=== PATIENT | male | born 1970 | race African-American/Black ===

== ENCOUNTER 2022-01-11 08:12 | Emergency (ER) | payer OTHER ==
[~2022-01-11] VITALS: Ht 177.8 cm; Wt 75.0 kg
[2022-01-11 08:14] VITALS: BP 146/102
[2022-01-11] MEDS ORDERED: PANTOPRAZOLE SODIUM 40 MG/VIAL IV ONE (08:30)
[2022-01-11] MEDS ORDERED: VISCOUS LIDOCAINE 2% 15 ML UDC MM ONE (08:30)
[2022-01-11] MEDS ORDERED: ONDANSETRON HCL 4MG/2ML INJ IV ONE (08:30)
[2022-01-11] MEDS ORDERED: MAGNESIUM/ALUMINUM HYDROXIDE/SIMETHICONE 30ML UDC PO ONE (08:30)
[2022-01-11 11:56] LABS: BASOPHILS % 0.6 % (0.0-2.0); EOSINOPHILS % 2.8 % (0.0-5.0); HEMOGLOBIN. 15.3 g/dL (14.0-18.0); LYMPHOCYTES % 21.9 % (20.0-50.0); MEAN CORPUSCULAR HEMOGLOBIN 25.4 pg (28.0-32.0); MEAN CORPUSCULAR VOLUME 79.6 fL (80.0-94.0); MEAN PLATELET VOLUME 8.3 fl (7.4-10.4); MONOCYTES % 11.5 % (2.0-8.0); NEUTROPHILS % 63.2 % (40.0-76.0); PLATELET 195 x1000/uL (130-400); RED BLOOD CELL COUNT 6.03 mill/uL (4.7-6.1); RED CELL DISTRIBUTION WIDTH 16.5 % (11.6-14.6)
[2022-01-11 12:00] LABS: CHLORIDE 103 mEq/L (98-107)
[2022-01-11 12:03] LABS: ETHANOL BLOOD < 10 mg/dL
[2022-01-11] MEDS ORDERED: PROT40 MT (14:30)
[2022-01-11] MEDS ORDERED: ALBU6.7H9 INH (14:30)
[2022-01-11] MEDS ORDERED: ONDA4TAB5 MT (14:30)
[2022-01-11] MEDS ORDERED: DOXY-326 MT (14:30)
[2022-01-11] MEDS ORDERED: ONDANSETRON 4MG ODT PO ONE (14:30)
[2022-01-11] MEDS ORDERED: PANTOPRAZOLE 40MG DR TABLET PO ONE (14:30)
[2022-01-11] MEDS ORDERED: MAGNESIUM/ALUMINUM HYDROXIDE/SIMETHICONE 30ML UDC PO SCH (14:45)
[2022-01-11] MEDS ORDERED: DOXYCYCLINE HYCLATE 100MG CAPSULE PO ONE (14:45)
[2022-01-11] MEDS ORDERED: VISCOUS LIDOCAINE 2% 15 ML UDC MM SCH (15:00)
== END 2022-01-11 14:56 | disposition home or self-care (01) ==
LOC: ER 08:12
DX: R10.13 Epigastric pain (principal); R07.89 Other chest pain; K29.70 Gastritis, unspecified, without bleeding; R03.0 Elevated blood-pressure reading, without diagnosis of hypertension; R91.8 Other nonspecific abnormal finding of lung field; F17.210 Nicotine dependence, cigarettes, uncomplicated
CPT/HCPCS: 36415; 71045; 76705; 80053; 80320; 83690; 83880; 84484; 85025; 93005; 99285; Q0162; G0480

== ENCOUNTER 2024-11-22 12:31 | Emergency (ER) | payer OTHER ==
[~2024-11-22] VITALS: Ht 177.8 cm; Wt 78.0 kg
[~2024-11-22 12:31] MED LIST: ALBU6.7H3 INH; DOXY100C74 MT; ONDA4TAB5 MT; PROT40 MT
[2024-11-22 12:36] VITALS: O2SAT 100
[2024-11-22 13:00] LABS: BASOPHILS % 1.2 % (0.0-2.0); DIFFERENTIAL COMMENT 0; EOSINOPHILS % 3.5 % (0.0-5.0); HEMOGLOBIN. 12.9 g/dL (14.0-18.0); LYMPHOCYTES % 23.8 % (20.0-50.0); MEAN CORPUSCULAR HEMOGLOBIN 25.2 pg (28.0-32.0); MEAN CORPUSCULAR HGB CONC 32.2 g/dL (31.0-37.0); MEAN CORPUSCULAR VOLUME 78.3 fL (80.0-94.0); MEAN PLATELET VOLUME 7.5 fl (7.4-10.4); MONOCYTES % 10.1 % (2.0-8.0); NEUTROPHILS % 61.4 % (40.0-76.0); PLATELET 310 x1000/uL (130-400); RED BLOOD CELL COUNT 5.11 mill/uL (4.7-6.1); RED CELL DISTRIBUTION WIDTH 16.4 % (11.6-14.6); WHITE BLOOD COUNT 6.7 x1000/uL (4.5-11.0)
[2024-11-22 13:15] LABS: CHLORIDE 105 mEq/L (98-107); POTASSIUM 4.3 mEq/L (3.5-5.1); SODIUM 138 mEq/L (136-145)
[2024-11-22 13:16] LABS: CALCIUM 9.6 mg/dL (8.7-10.4); CARBON DIOXIDE 29 mEq/L (21-32)
[2024-11-22 13:21] LABS: CREATININE 0.9 mg/dL (0.6-1.3); GLUCOSE 113 mg/dL (70-105); UREA NITROGEN BLOOD 10 mg/dL (9-23)
[2024-11-22 13:23] LABS: TROPONIN I HIGH SENSITIVITY < 4 ng/L (3.0-53)
[2024-11-22] MEDS ORDERED: IOHEXOL-300 100 ML BOTTLE ONE (14:51)
[2024-11-22 15:07] VITALS: BP 143/93; PULSE 100; RESP 17; TEMP 36.9; O2SAT 100
== END 2024-11-22 15:21 | disposition short-term general hospital (02) ==
LOC: ER 12:31
DX: R07.89 Other chest pain (principal); Z79.899 Other long term (current) drug therapy
CPT/HCPCS: 99291; 71260; 80048; 85025; 84484; 36415; 71045; 93005; Q9967